=== PATIENT | female | born 1975 | race Caucasian/White ===

== ENCOUNTER → 2017-04-09 | Outpatient (CLI) | payer MEDICAID | LOC: BRMIMAGING 13:06 | PROVIDERS: ATTEND Family Medicine | DX: Z12.31 Encounter for screening mammogram for malignant neoplasm of breast (principal) | CPT/HCPCS: G0202 ==

== ENCOUNTER → 2017-04-30 | Outpatient (CLI) | payer MEDICAID | LOC: BMCIMAGING 10:00 | PROVIDERS: ATTEND Podiatrist Foot & Ankle Surgery | DX: M21.619 Bunion of unspecified foot (principal); M20.11 Hallux valgus (acquired), right foot; M20.12 Hallux valgus (acquired), left foot ==

== ENCOUNTER → 2017-05-20 | Outpatient (CLI) | payer MEDICAID | LOC: BMCIMAGING 11:07 | PROVIDERS: ATTEND Podiatrist Foot & Ankle Surgery | DX: Z09 Encounter for follow-up examination after completed treatment for conditions other than malignant neoplasm (principal); Z98.890 Other specified postprocedural states ==

== ENCOUNTER → 2017-06-16 | Outpatient (CLI) | payer MEDICAID | LOC: BMCIMAGING 11:31 | PROVIDERS: ATTEND Podiatrist Foot & Ankle Surgery | DX: Z09 Encounter for follow-up examination after completed treatment for conditions other than malignant neoplasm (principal) ==

== ENCOUNTER → 2017-07-02 | Outpatient (CLI) | payer MEDICAID | LOC: BMCIMAGING 14:53 | PROVIDERS: ATTEND Podiatrist Foot & Ankle Surgery | DX: Z09 Encounter for follow-up examination after completed treatment for conditions other than malignant neoplasm (principal) ==

== ENCOUNTER → 2017-07-13 | Outpatient (CLI) | payer MEDICAID | LOC: BMCIMAGING 15:09 | PROVIDERS: ATTEND Podiatrist Foot & Ankle Surgery | DX: Z09 Encounter for follow-up examination after completed treatment for conditions other than malignant neoplasm (principal); Z98.890 Other specified postprocedural states; M19.072 Primary osteoarthritis, left ankle and foot ==

== ENCOUNTER → 2018-01-08 | Outpatient (CLI) | payer MEDICAID | LOC: FIMAGING 09:49 | PROVIDERS: ATTEND Physician Assistant Medical | DX: M25.511 Pain in right shoulder (principal) ==

== ENCOUNTER → 2018-02-24 | Outpatient (CLI) | payer MEDICAID | LOC: BRMIMAGING 08:43 | PROVIDERS: ATTEND Family Medicine | DX: R10.11 Right upper quadrant pain (principal) | CPT/HCPCS: 76705-PO ==